=== PATIENT | female | born 1965 | race Caucasian/White ===

== ENCOUNTER 2016-05-02 17:29 | Emergency (ER) | payer OTHER ==
[2016-05-02] MEDS ORDERED: TORADOL IM ONE (19:22)
[2016-05-02] MEDS ORDERED: DILAUDID IM ONE (19:23)
--- NOTE | 2016-05-02 19:26 | PROVIDER DOCUMENTATION ---
HPI-Musculoskeletal Pain/Inj - GENERAL Chief Complaint: Back Injury Stated Complaint: BACK PAIN Time Seen by Provider: 05/02/16 18:59 Source: patient Progress - XRAY 1 XRAY Study: Thoracic Spine XRAY Interpretation: No fx 2 XRAY Study: Lumbar Spine XRAY Interpretation: No fx Departure - Departure Time of Disposition Order: 19:23 DIAGNOSIS: Back muscle spasm Back strain Qualifiers: Encounter type: initial encounter Qualified Code(s): S39.012A - Strain of muscle, fascia and tendon of lower back, initial encounter Disposition: HOME 01 Certified Medical Emergency: Emergent Condition: Stable Additional Instructions: Follow up with specialist for further management. Take medications as directed. Heat to areas as needed. ED Follow Up Instructions: You have been treated by a care provider in the Emergency Department. These instructions are being provided to you so you can have an understanding of how to care for yourself upon discharge. Upon discharge from the Emergency Department, you are responsible for making arrangements for follow-up care by a physician of your choice. Take all prescribed medications as directed. Return to the Emergency Department immediately for any new or worsening symptoms. You may call the Physician Referral phone number at [phone] to obtain a list of Physicians who are taking new patients. Prescriptions: Lidocaine 1 each TP DAILY #20 adh..patch Meloxicam [Mobic] 15 mg PO DAILY #30 tablet Referrals: None,PCP [Primary Care Provider] - Amanuel Ly DO [STAFF PHYSICIAN] - Attestation - Physician/ CARLOS Attestation Patient care was provided by Advanced Practice Provider:: Yes Advanced Practice Provider:: Vanessa Mcclain Advanced Practice Provider documentation review:: The Mid-level provider documentation, treatment plan and medical decision making was reviewed by the physician who agrees with all treatment and medical decision making by the [facility].
[2016-05-02 20:04] VITALS: BP 155/88
--- NOTE | 2016-05-03 07:28 | Diag Imaging Result Document ---
PROCEDURE NAME: LUMBAR SPINE - 05/02/2016 LUMBAR SPINE, 6 VIEWS: COMPARISON: None. FINDINGS: There is subtle compression deformity of L2. There are degenerative osteophytes at L1- L2 suggesting this may be chronic. Otherwise, no fracture or subluxation. IMPRESSION: Subtle, age indeterminate compression deformity of L2. Correlate clinically.
--- NOTE | 2016-05-03 07:38 | Diag Imaging Result Document ---
PROCEDURE NAME: THORACIC SPINE - 05/02/2016 THORACIC SPINE, 3 VIEWS: COMPARISON: None. FINDINGS: Alignment is anatomic. Vertebral body heights and intervertebral disk spaces are preserved. There are moderately advanced degenerative osteophytes throughout the lower thoracic spine. No fracture or subluxation. IMPRESSION: Degenerative disk disease. No acute disease.
== END 2016-05-02 20:04 | disposition home or self-care (01) ==
LOC: ED 17:29
DX: S39.012A Strain of muscle, fascia and tendon of lower back, initial encounter (principal); M62.830 Muscle spasm of back; M54.5 Low back pain; M54.6 Pain in thoracic spine; W18.40XA Slipping, tripping and stumbling without falling, unspecified, initial encounter
CPT/HCPCS: 72072; 72110; 96372; J1170; J1885

== ENCOUNTER 2016-05-07 18:04 | Emergency (ER) | payer OTHER ==
--- NOTE | 2016-05-07 19:14 | PROVIDER DOCUMENTATION ---
HPI-EENT General - General Chief Complaint: Toothache Stated Complaint: TOOTHACHE Time Seen by Provider: 05/07/16 18:55 Source: patient Allergies/Adverse Reactions: Patient Allergies Allergy/AdvReac Type Severity Reaction Status Date / Time aspirin Allergy VOMITING Verified 05/02/16 19:16 baclofen Allergy Unknown Verified 05/02/16 19:16 levofloxacin [From Levaquin] Allergy Unknown Verified 05/07/16 18:48 nabumetone [From Relafen] Allergy Unknown Verified 05/02/16 19:16 Home Medications: Home Medication List Medication Instructions Recorded Confirmed Last Taken Type Gabapentin 800 mg PO TID 05/02/16 05/02/16 05/02/16 History Lidocaine 1 each TP DAILY #20 adh..patch 05/02/16 Unknown Rx Meloxicam [Mobic] 15 mg PO DAILY #30 tablet 05/02/16 Unknown Rx Omeprazole [Prilosec] 40 mg PO DAILY 05/02/16 05/02/16 05/02/16 History Trazodone HCl 150 mg PO HS 05/02/16 05/02/16 05/01/16 History Venlafaxine [Effexor] 75 mg PO BID 05/02/16 05/02/16 05/02/16 History Amoxicillin/Pot Clavulanate 875 mg PO Q12HR #14 tablet 05/07/16 Unknown Rx [Augmentin] Ibuprofen [Motrin] 800 mg PO Q8H PRN PRN #20 tablet 05/07/16 Unknown Rx Omeprazole [Prilosec] 20 mg PO DAILY@0700 #20 capsule 05/07/16 Unknown Rx Tramadol [Ultram] 50 mg PO Q8HR #14 tablet 05/07/16 Unknown Rx - History of Present Illness-EENT General Nature of Presenting Problem: Pt is a 50 y/o F c chief complaint of pain to a number of decayed teeth throughout her mouth. Pt states that she has had an extensive h/o dental decay and infections. She plans on getting dental implants. She denies fever, difficulty managing oral secretions, trismus. On arrival, pt is in minimal distress. Review of Systems - Adult - REVIEW OF SYSTEMS - ADULT Constitutional: reports: no symptoms reported. denies: chills, fatique Eyes: reports: no symptoms reported. denies: blurred vision, double vision Ears, Nose, Mouth & Throat: reports: mouth/dental pain. denies: ear pain, nose pain, throat pain Cardiovascular: reports: no symptoms reported. denies: chest pain, orthopnea Respiratory: reports: no symptoms reported. denies: cough, shortness of breath Gastrointestinal: reports: no symptoms reported. denies: abdominal pain, nausea Genitourinary: reports: no symptoms reported. denies: dysuria, hematuria, hesitency Musculoskeletal: reports: no symptoms reported. denies: bone pain, joint pain, joint swelling Integumentary: reports: no symptoms reported. denies: itching, rash Neurological: reports: no symptoms reported. denies: numbness, paresthesia Psychiatric: reports: no symptoms reported. denies: anxiety, emotional problems Endocrine: reports: no symptoms reported. denies: cold intolerance, heat intolerance Hematologic/Lymphatic: reports: no symptoms reported. denies: blood clots, low blood count Allergic/Immunologic: reports: no symptoms reported. denies: allergic reactions , food allergy All Other Systems: Reviewed and Negative Past History - Adult - PAST MEDICAL HISTORY-ADULT Review of Records: reports: Old Records Reviewed, Nursing Assessment Review, Medications Reviewed, Social history reviewed & non-contributory. Major Childhood Illnesses: reports: denies history Cardiovascular: reports: denies history Respiratory: reports: denies history Gastrointestinal: reports: denies history Obstetrical/Gynecological: reports: denies history Genitourinary: reports: denies history Musculoskeletal: reports: denies history Neurological: reports: denies history Endocrine/Immune: reports: denies history Other Conditions: reports: denies history - IMMUNIZATION STATUS Childhood Immunizations: See Nurse Assessment Flu Vaccine: See Nurse Assessment - FAMILY HISTORY Family History: reviewed, not pertinent - SOCIAL HISTORY Smoking: denies Substance Use: none/never Alcohol Use Frequency: never Living Situation: family Physical Exam- EENT - Physical Exam EENT Initial Vital Signs Reviewed: Yes General Appearance: alert, no apparent distress Eye Exam: bilateral eye: normal inspection, PERRL, EOMI Nasal Exam: normal inspection Throat Exam: dental tenderness, other (EXTENSIVE DENTAL DECAY) Neck: non-tender, normal inspection Respiratory: chest non-tender, lungs clear, normal breath sounds Cardiovascular: normal peripheral pulses, regular rate, rhythm, no edema Abdominal Exam: normal bowel sounds, non tender, soft Lymphatic: no adenopathy Back Exam: normal inspection, no CVA tenderness, no vertebral tenderness Extremity: normal range of motion, non-tender, normal gait Neurologic: grossly normal, no motor/sensory deficits Psych/Mental Status: normal mood/affect, normal thought content, normal thought process, oriented x 3 Departure - Departure Time of Disposition Order: 19:13 DIAGNOSIS: Pain, dental Disposition: HOME 01 Certified Medical Emergency: Emergent Condition: Stable Additional Instructions: ED Follow Up Instructions: You have been treated by a care provider in the Emergency Department. These instructions are being provided to you so you can have an understanding of how to care for yourself upon discharge. Upon discharge from the Emergency Department, you are responsible for making arrangements for follow-up care by a physician of your choice. Take all prescribed medications as directed. Return to the Emergency Department immediately for any new or worsening symptoms. You may call the Physician Referral phone number at [phone] to obtain a list of Physicians who are taking new patients. Prescriptions: Amoxicillin/Pot Clavulanate [Augmentin] 875 mg PO Q12HR #14 tablet Ibuprofen [Motrin] 800 mg PO Q8H PRN PRN #20 tablet PRN Reason: inflammation Omeprazole [Prilosec] 20 mg PO DAILY@0700 #20 capsule Tramadol [Ultram] 50 mg PO Q8HR #14 tablet Referrals: Mirza Ruiz MD [STAFF PHYSICIAN] - Instructions: Dental Pain Attestation - Physician/ CARLOS Attestation Patient care was provided by Advanced Practice Provider:: Yes Advanced Practice Provider:: Amanuel Amaro Advanced Practice Provider documentation review:: The Mid-level provider documentation, treatment plan and medical decision making was reviewed by the physician who agrees with all treatment and medical decision making by the [facility].
[2016-05-07 19:53] VITALS: BP 133/93
== END 2016-05-07 20:12 | disposition home or self-care (01) ==
LOC: ED 18:04
DX: K08.89 Other specified disorders of teeth and supporting structures (principal); K02.9 Dental caries, unspecified; Z79.899 Other long term (current) drug therapy